=== PATIENT | female | born 1985 | race Caucasian/White ===

== ENCOUNTER → 2018-05-11 | Outpatient (CLI) | payer BC ==
[~2018-05-11] MED LIST: CALC200T3 PO; HYDR25TA11 PO; IBUP-1222 PO; None at this Time; OXYC-302 PO; PREN1TAB60 PO
== END | disposition home or self-care (01) ==
LOC: STAR 10:20
PROVIDERS: ATTEND Obstetrics & Gynecology
DX: Z02.9 Encounter for administrative examinations, unspecified (principal)